=== PATIENT | male | born 2000 | race Caucasian/White ===

== ENCOUNTER 2022-07-10 00:13 | Emergency (ER) | payer SELFPAY ==
[~2022-07-10] VITALS: Ht 185.4 cm; Wt 68.0 kg
[2022-07-10 00:13] VITALS: BP 112/72
[2022-07-10] MEDS ORDERED: diphenhydrAMINE HCL 25 MG CAPSULE ONE (01:16)
[2022-07-10] MEDS: diphenhydrAMINE HCL 25 MG CAPSULE PO ONE (01:20)
== END 2022-07-10 01:21 | disposition home or self-care (01) ==
LOC: ER 00:19
DX: J30.81 Allergic rhinitis due to animal (cat) (dog) hair and dander (principal)
CPT/HCPCS: 99282; Q0163